=== PATIENT | male | born 1960 | race Two or more races ===

== ENCOUNTER → 2025-03-30 15:05 | Outpatient (REF) | payer OTHER, SELFPAY ==
[2025-03-31 15:10] LABS: Mumps Virus IgG Positive; Varicella Zoster IgG (VZV) Positive
== END ==
LOC: OHS 15:05
PROVIDERS: ATTENDING PHYSICIAN Nurse Practitioner Family
DX: Z23 Encounter for immunization (principal)
CPT/HCPCS: 36415; 86735; 86762; 86765; 86787